=== PATIENT | female | born 1960 | race Caucasian/White ===

== ENCOUNTER 2024-11-09 14:04 | Inpatient (IN) | payer OTHER ==
--- NOTE | 2024-11-09 14:19 | ED ---
General Adult HPI - General Stated complaint: LATANYA Time Seen by Provider: 11/09/24 14:10 Source: patient, RN notes reviewed, old records reviewed - History of Present Illness Initial comments: Patient comes to us from [facility]. This is a 64-year-old female who presents to the emergency department with a past medical history significant for smoking and diabetes and crack cocaine. Patient states she last used crack cocaine 5 days ago. Patient also has a history of asthma. Patient states about 3 hours prior to arrival she came to the emergency department because she started having pain in her left arm and got quite painful and she also started having shortness of breath at that time. Patient denies any chest pain or palpitations. Patient denies any fever chills. Patient states she has a cough but it has been dry patient denies abdominal pain patient has nausea vomiting diarrhea. Patient denies any diaphoretic episode. Patient states she has a mild headache. Patient states that her arm pain is still there but is much improved. Patient still feels mildly short of breath. - Related Data Allergies Allergy/AdvReac Type Severity Reaction Status Date / Time codeine Allergy Rash/Hives Verified 11/09/24 14:18 morphine Allergy Rash/Hives Verified 11/09/24 14:18 metformin AdvReac Nausea & Verified 11/09/24 14:18 Vomiting & Diarrhea Review of Systems ROS Statement: Those systems with pertinent positive or pertinent negative responses have been documented in the HPI. ROS Other: All systems not noted in ROS Statement are negative. General Exam - General Exam Comments Initial Comments: GENERAL: Patient is well-developed and well-nourished. Patient is nontoxic and well- hydrated and is in mild distress. ENT: Neck is soft and supple. No significant lymphadenopathy is noted. Oropharynx is clear. Moist mucous membranes. Neck has full range of motion without eliciting any pain. EYES: The sclera were anicteric and conjunctiva were pink and moist. Extraocular movements were intact and pupils were equal round and reactive to light. Eyelids were unremarkable. PULMONARY: Unlabored respirations. Good breath sounds bilaterally. No audible rales rhonchi or wheezing was noted. CARDIOVASCULAR: There is a regular rate and rhythm without any murmurs gallops or rubs. ABDOMEN: Soft and nontender with normal bowel sounds. No palpable organomegaly was noted. There is no palpable pulsatile mass. SKIN: Skin is clear with no lesions or rashes and otherwise unremarkable. NEUROLOGIC: Patient is alert and oriented x3. Cranial nerves II through XII are grossly intact. Motor and sensory are also intact. Normal speech, volume and content. Symmetrical smile. MUSCULOSKELETAL: Normal extremities with adequate strength and full range of motion. No lower extremity swelling or edema. No calf tenderness. Patient's arm pain was not reproducible with movement LYMPHATICS: No significant lymphadenopathy is noted PSYCHIATRIC: Normal psychiatric evaluation. Course Vital Signs 11/09/24 11/09/24 14:13 15:13 Temperature 98.1 F Pulse Rate 77 Pulse Rate [ 71 Dsp Engineer ] Respiratory 18 Rate Blood Pressure 136/60 O2 Sat by Pulse 98 Oximetry Medical Decision Making - Medical Decision Making EKG is interpreted by myself but EKG shows a sinus rhythm at 72 bpm ID was 153 QRS is 86 QT interval 377 QTc is 402. Patient's EKG shows no ST segment elevation or depression. Was pt. sent in by a medical professional or institution (, PA, [employer], urgent care, hospital, or [place] health [place] facility...) When possible be specific @ -No Did you speak to anyone other than the patient for history (EMS, parent, family, police, friend...)? What history was obtained from this source @ -No Did you review nursing and triage notes (agree or disagree)? Why? @ -I reviewed and agree with nursing and triage notes Were old charts reviewed (outside hosp., previous admission, EMS record, old EKG, old radiological studies, urgent care reports/EKG's, [place] health [place] facility records)? Report findings @ -No old charts were reviewed Differential Diagnosis? @ -Differential Chest Pain: Stable Angina, Unstable Angina, STEMI, NSTEMI Aortic Dissection, Pneumothorax, Musculoskeletal, Esophageal Spasm GERD, Cholecystitis, Pancreatitis, Zoster, this is not meant to be an all-inclusive list. EKG interpreted by me (3pts min.). @ -As above X-rays interpreted by me (1pt min.). @ -Chest x-ray showed no acute abnormality. CT interpreted by me (1pt min.). @ -None done U/S interpreted by me (1pt. min.). @ -None done What testing was considered but not performed or refused? (CT, X-rays, U/S, labs)? Why? @ -None What meds were considered but not given or refused? Why? @ -None Did you discuss the management of the patient with other professionals (professionals i.e. , PA, [employer], lab, RT, psych nurse, social media community manager, engine manager, teacher, canine enforcement officer, manager case)? Give summary @ -I spoke with [facility] agreed admit the patient admit the patient wrote admitting orders Was smoking cessation discussed for >3mins.? @ -No Was critical care preformed (if so, how long)? @ -No Were there social determinants of health that impacted care today? How? (Brittany elessness, low income, unemployed, alcoholism, drug addiction, transportation, low edu. Level, literacy, decrease access to med. care, shelter, rehab)? @ -No Was there de-escalation of care discussed even if they declined (Discuss DNR or withdrawal of care, Hospice)? DNR status @ -No What co-morbidities impacted this encounter? (DM, HTN, Smoking, COPD, CAD, Cancer, CVA, ARF, Chemo, Hep., AIDS, mental health diagnosis, sleep apnea, morbid obesity)? @ -None Was patient admitted / discharged? Hospital course, mention meds given and route, prescriptions, significant lab abnormalities, going to OR and other pertinent info. @ -Patient was given aspirin Nitropaste in the emergency department. I went back into reevaluate the patient patient stated that the Nitropaste seem to take the way the arm pain. So at this point in time I spoke with [facility] they agreed admit the patient admit the patient I consulted cardiology Undiagnosed new problem with uncertain prognosis? @ -No Drug Therapy requiring intensive monitoring for toxicity (Heparin, Nitro, Insulin, Cardizem)? @ -No Were any procedures done? @ -No Diagnosis/symptom? @ -Atypical chest pain Acute, or Chronic, or Acute on Chronic? @ -Acute Uncomplicated (without systemic symptoms) or Complicated (systemic symptoms)? @ -Complicated Side effects of treatment? @ -No Exacerbation, Progression, or Severe Exacerbation? @ -No Poses a threat to life or bodily function? How? (Chest pain, USA, MD, pneumonia, PE, COPD, DKA, ARF, appy, cholecystitis, CVA, Diverticulitis, Homicidal, Suicidal, threat to staff... and all critical care pts) @ -Yes this can lead to an MD and endorgan dysfunction - Lab Data Result diagrams: 11/09/24 14:50 11/09/24 14:50 Lab Results 11/09/24 11/09/24 11/09/24 Range/Units 14:50 14:50 14:50 WBC 8.3 (3.8-10.6) k/uL RBC 4.25 (3.80-5.40) m/uL Hgb 12.5 (11.4-16.0) gm/dL Hct 38.9 (34.0-46.0) % MCV 91.4 (80.0-100.0) fL MCH 29.5 (25.0-35.0) pg MCHC 32.3 (31.0-37.0) g/dL RDW 14.0 (11.5-15.5) % Plt Count 201 (150-450) k/uL MPV 7.9 Neutrophils % 69 % Lymphocytes % 24 % Monocytes % 5 % Eosinophils % 1 % Basophils % 0 % Neutrophils # 5.7 (1.3-7.7) k/uL Lymphocytes # 2.0 (1.0-4.8) k/uL Monocytes # 0.4 (0-1.0) k/uL Eosinophils # 0.1 (0-0.7) k/uL Basophils # 0.0 (0-0.2) k/uL PT 10.3 (10.0-12.5) sec INR 0.9 (<1.2) APTT 24.2 (22.0-30.0) sec Sodium 138 (137-145) mmol/L Potassium 4.5 (3.5-5.1) mmol/L Chloride 102 (98-107) mmol/L Carbon Dioxide 30 (22-30) mmol/L Anion Gap 6 mmol/L BUN 24 H (7-17) mg/dL Creatinine 1.02 (0.52-1.04) mg/dL Est GFR (CKD-EPI)AfAm 69 (>60 ml/min/1.73 sqM) Est GFR (CKD-EPI)NonAf 59 (>60 ml/min/1.73 sqM) Glucose 243 H (74-99) mg/dL Calcium 9.0 (8.4-10.2) mg/dL Magnesium 1.9 (1.6-2.3) mg/dL Total Bilirubin 0.3 (0.2-1.3) mg/dL AST 13 L (14-36) U/L ALT 11 (4-34) U/L Alkaline Phosphatase 94 (38-126) U/L Troponin I (0.000-0.034) ng/mL Total Protein 6.1 L (6.3-8.2) g/dL Albumin 3.4 L (3.5-5.0) g/dL Influenza Type A (PCR) (Not Detectd) Influenza Type B (PCR) (Not Detectd) RSV (PCR) (Not Detectd) SARS-CoV-2 (PCR) (Not Detectd) 11/09/24 11/09/24 Range/Units 14:50 14:50 WBC (3.8-10.6) k/uL RBC (3.80-5.40) m/uL Hgb (11.4-16.0) gm/dL Hct (34.0-46.0) % MCV (80.0-100.0) fL MCH (25.0-35.0) pg MCHC (31.0-37.0) g/dL RDW (11.5-15.5) % Plt Count (150-450) k/uL MPV Neutrophils % % Lymphocytes % % Monocytes % % Eosinophils % % Basophils % % Neutrophils # (1.3-7.7) k/uL Lymphocytes # (1.0-4.8) k/uL Monocytes # (0-1.0) k/uL Eosinophils # (0-0.7) k/uL Basophils # (0-0.2) k/uL PT (10.0-12.5) sec INR (<1.2) APTT (22.0-30.0) sec Sodium (137-145) mmol/L Potassium (3.5-5.1) mmol/L Chloride (98-107) mmol/L Carbon Dioxide (22-30) mmol/L Anion Gap mmol/L BUN (7-17) mg/dL Creatinine (0.52-1.04) mg/dL Est GFR (CKD-EPI)AfAm (>60 ml/min/1.73 sqM) Est GFR (CKD-EPI)NonAf (>60 ml/min/1.73 sqM) Glucose (74-99) mg/dL Calcium (8.4-10.2) mg/dL Magnesium (1.6-2.3) mg/dL Total Bilirubin (0.2-1.3) mg/dL AST (14-36) U/L ALT (4-34) U/L Alkaline Phosphatase (38-126) U/L Troponin I <0.012 (0.000-0.034) ng/mL Total Protein (6.3-8.2) g/dL Albumin (3.5-5.0) g/dL Influenza Type A (PCR) Not Detected (Not Detectd) Influenza Type B (PCR) Not Detected (Not Detectd) RSV (PCR) Not Detected (Not Detectd) SARS-CoV-2 (PCR) Not Detected (Not Detectd) Disposition Clinical Impression: Atypical angina Disposition: ADMITTED IP TO THIS [facility] Referrals: None,Stated [Primary Care Provider] - 1-2 days Time of Disposition: 17:24
[2024-11-09] MEDS: SODIUM CHLORIDE 0.9% 500 ML 500 ML IV STA (14:54)
[2024-11-09] MEDS: NITROGLYCERIN OINT 1 INCH/GM PACKET TOPICAL STA (14:54)
[2024-11-09] MEDS: ASPIRIN 81 MG PO STA (14:54)
[2024-11-09 15:06] LABS: Basophils % (A) 0 %; Eosinophils # (A) 0.1 k/uL (0-0.7); Eosinophils % (A) 1 %; HCT 38.9 % (34.0-46.0); HGB 12.5 gm/dL (11.4-16.0); Lymphocytes % (A) 24 %; MCH 29.5 pg (25.0-35.0); MCHC 32.3 g/dL (31.0-37.0); MCV 91.4 fL (80.0-100.0); Mean Platelet Volume 7.9; Monocytes # (A) 0.4 k/uL (0-1.0); Monocytes % (A) 5 %; Neutrophils # (A) 5.7 k/uL (1.3-7.7); Neutrophils % (A) 69 %; Platelet Count 201 k/uL (150-450); RBC 4.25 m/uL (3.80-5.40); WBC 8.3 k/uL (3.8-10.6)
[2024-11-09 15:17] LABS: ALT 11 U/L (4-34); AST 13 U/L (14-36); African American GFR (CKD) 69 (>60 ml/min/1.73 sqM); Albumin 3.4 g/dL (3.5-5.0); Alkaline Phosphatase 94 U/L (38-126); Anion Gap 6 mmol/L; Blood Urea Nitrogen 24 mg/dL (7-17); Carbon Dioxide 30 mmol/L (22-30); Chloride 102 mmol/L (98-107); Glucose 243 mg/dL (74-99); Magnesium 1.9 mg/dL (1.6-2.3); Non-African American GFR(CKD) 59 (>60 ml/min/1.73 sqM); Potassium 4.5 mmol/L (3.5-5.1); Sodium 138 mmol/L (137-145); Total Bilirubin 0.3 mg/dL (0.2-1.3); Total Protein 6.1 g/dL (6.3-8.2)
[2024-11-09 15:23] LABS: INR 0.9 (<1.2); Partial Thromboplastin Time 24.2 sec (22.0-30.0); Prothrombin Time 10.3 sec (10.0-12.5)
--- NOTE | 2024-11-09 15:25 | XR ---
EXAMINATION TYPE: XR chest 2V DATE OF EXAM: 11/09/2024 3:12 PM COMPARISON: None. CLINICAL INDICATION: Female, 64 years old with history of Chest Pain, TECHNIQUE: XR chest 2V view(s) obtained. FINDINGS: The heart size is normal. The pulmonary vasculature is normal. The lungs are clear. IMPRESSION: 1. No acute pulmonary process. [facility], Workstation: [facility], 11/09/2024 3:23 PM
[2024-11-09 15:41] LABS: Influenza A Not Detected (Not Detectd); Influenza B Not Detected (Not Detectd); RSV Not Detected (Not Detectd)
[2024-11-09] MEDS ORDERED: NITROGLYCERIN SL TABS 0.4 MG TAB SUBLINGUAL PRN (17:24)
[2024-11-09] MEDS: NITROGLYCERIN OINT 1 INCH/GM PACKET TOPICAL SCH (17:41)
[2024-11-10] MEDS: MELATONIN 5 MG TABLET PO SCH (01:23)
--- NOTE | 2024-11-10 09:38 | P.CRDCN ---
History of Present Illness Consult date: 11/10/24 History of present illness: HISTORY OF PRESENTING ILLNESS: Patient is a 64-year-old female with past medical history of type 2 diabetes and morbid obesity. She presented to the Hospital because of symptoms of increased worsening shortness of breath and left-sided shoulder pain. She denies any fever chills however does report mild cough. Patient's left shoulder has a limited range of motion at the shoulder joint. Bringing her arm above her shoulder induces the pain that brought her to the hospital. He smokes 1 pack/day for last 45 years. She denies any alcohol use or marijuana use. She denies any drug use. She denies any prior history of stroke or TIA. She has not had any prior cardiac testing done in recent past. Admission Cardiac Labs: Troponin x 3 were negative, hypoglycemic with glucose 248, oral panel was negative, Hb 12.5 Admission testing: EKG shows normal sinus rhythm with no significant ST-T changes concerning for ischemia. Low voltage complexes due to body habitus CXR shows no significant pulmonary congestion or consolidation REVIEW OF SYSTEMS: 14 point review of system is negative except what is mentioned above in HPI. PHYSICAL EXAMINATION: Neck: Brisk carotid upstroke, no jugular venous distention. Lungs: Mild wheezing or rhonchi audible Heart: Regular rate and rhythm, S1-S2, , no murmur or rub. Abdomen: Soft nontender, positive bowel sounds. Extremities: No edema, intact distal pulses. Neuro: Alert, oritented, no focal deficits. Detailed neuro exam was not performed. ASSESSMENT: # Left shoulder pain and arm pain, most likely musculoskeletal. Ruled out of ACS with negative ECG and tropes. Pain reproducible with bringing arm above the shoulder # Shortness of breath, likely mild COPD exacerbation # Type II diabetes # Morbid obesity # Tobacco smoker 1 pack/day [id number] smoking history PLAN: Obtain echocardiogram. Aspirin 81 mg, Lipitor 40 mg, losartan 12.5 mg daily Diabetes and COPD management as per primary team Recommend Lexiscan nuclear stress test if patient ends up staying in the hospital until Tuesday. If patient is cleared by the rounding team to be discharged, Lexiscan can be performed in the office as an outpatient. Smoking cessation counseling provided. Quit line details provided Rahul Ramesh MD, FACC, RPVI Thank you for allowing [facility] to participate in this patient's care. Feel free to reach out in case of any followup questions. Past Medical History Past Medical History: Asthma, COPD, Diabetes Mellitus History of Any Multi-Drug Resistant Organisms: None Reported Past Surgical History: Orthopedic Surgery Additional Past Surgical History / Comment(s): left arm Past Psychological History: Bipolar Smoking Status: Current every day smoker Past Alcohol Use History: None Reported Past Drug Use History: Cocaine Medications and Allergies Home Medications Medication Instructions Recorded Confirmed Type Albuterol Sulfate [Ventolin HFA] 2 puff INHALATION TID PRN 11/09/24 11/09/24 History Insulin Regular, Human [NovoLIN R] See Protocol SQ AC-TID 11/09/24 11/09/24 History Tiotropium 2.5 Mcg/Puff [Spiriva 2 puff INHALATION RT-DAILY 11/09/24 11/09/24 History Respimat 2.5 Mcg] glipiZIDE [Glucotrol] 5 mg PO DAILY 11/09/24 11/09/24 History Allergies Allergy/AdvReac Type Severity Reaction Status Date / Time codeine Allergy Rash/Hives Verified 11/09/24 17:40 morphine Allergy Rash/Hives Verified 11/09/24 17:40 metformin AdvReac Nausea & Verified 11/09/24 17:40 Vomiting & Diarrhea Physical Exam Vitals: Vital Signs Temp Pulse Pulse Resp BP BP Pulse Ox 11/10/24 07:00 97.9 F 61 16 123/61 97 11/10/24 06:00 57 L 16 123/61 97 11/10/24 00:00 67 20 115/63 95 11/09/24 19:00 98.0 F 78 30 H 142/68 97 11/09/24 15:13 71 11/09/24 14:13 98.1 F 77 18 136/60 98 Results 11/09/24 14:50 11/09/24 14:50 Cardiac Enzymes 11/09/24 11/09/24 11/09/24 Range/Units 14:50 14:50 18:01 AST 13 L (14-36) U/L Troponin I <0.012 <0.012 (0.000-0.034) ng/mL 11/09/24 Range/Units 21:35 AST (14-36) U/L Troponin I <0.012 (0.000-0.034) ng/mL Coagulation 11/09/24 Range/Units 14:50 PT 10.3 (10.0-12.5) sec APTT 24.2 (22.0-30.0) sec CBC 11/09/24 Range/Units 14:50 WBC 8.3 (3.8-10.6) k/uL RBC 4.25 (3.80-5.40) m/uL Hgb 12.5 (11.4-16.0) gm/dL Hct 38.9 (34.0-46.0) % Plt Count 201 (150-450) k/uL Comprehensive Metabolic Panel 11/09/24 Range/Units 14:50 Sodium 138 (137-145) mmol/L Potassium 4.5 (3.5-5.1) mmol/L Chloride 102 (98-107) mmol/L Carbon Dioxide 30 (22-30) mmol/L BUN 24 H (7-17) mg/dL Creatinine 1.02 (0.52-1.04) mg/dL Glucose 243 H (74-99) mg/dL Calcium 9.0 (8.4-10.2) mg/dL AST 13 L (14-36) U/L ALT 11 (4-34) U/L Alkaline Phosphatase 94 (38-126) U/L Total Protein 6.1 L (6.3-8.2) g/dL Albumin 3.4 L (3.5-5.0) g/dL Current Medications Generic Name Dose Route Start Last Admin Trade Name Freq PRN Reason Stop Dose Admin Albuterol/Ipratropium 3 ml 11/10/24 20:00 Ipratropium-Albuterol 3 Ml Neb INHALATION RT-BID [facility] Aspirin 81 mg 11/11/24 09:00 Aspirin 81 Mg PO DAILY [facility] Atorvastatin Calcium 40 mg 11/10/24 21:00 Atorvastatin 40 Mg Tab PO HS [facility] Losartan Potassium 12.5 mg 11/10/24 09:45 Losartan 25 Mg Tab PO DAILY [facility] Melatonin 5 mg 11/10/24 00:31 11/10/24 01:23 Melatonin 5 Mg Tablet PO 5 mg HS [facility] Administration Nitroglycerin 1 inch 11/09/24 18:00 11/10/24 06:55 Nitroglycerin Oint 1 Inch/Gm Packet TOPICAL 1 inch Q6HR TULIO Administration 11/09/24 14:50 11/09/24 14:50
[2024-11-10 10:25] LABS: Chol/HDL Ratio 4.65 Ratio; LDL Cholesterol,Calculated 86.4 mg/dL (0.0-131.0)
[2024-11-10 10:47] LABS: Magnesium 1.8 mg/dL (1.6-2.3)
[2024-11-10 10:58] LABS: NT-Pro-B-Type Natriuretic Pept <20 pg/mL
[2024-11-10] MEDS: LOSARTAN 25 MG TAB PO SCH (11:07)
[2024-11-10] MEDS: ASPIRIN 325 MG TAB PO SCH (11:13)
[2024-11-10 12:32] LABS: Glucose,Whole Blood 217 mg/dL (70-110)
[2024-11-10 17:02] LABS: Glucose,Whole Blood 199 mg/dL (70-110)
[2024-11-10] MEDS ORDERED: DEXTROSE 50% SYRINGE 50 ML IVP PRN ×2 (17:27)
[2024-11-10] MEDS ORDERED: ALBUTEROL NEBULIZED 2.5 MG/3 ML INHALATION PRN (17:28)
[2024-11-10] MEDS: INSULIN ASPART (NovoLOG) 100 UNIT/ML VIAL SQ SCH (18:30)
[2024-11-10] MEDS: TIOTROPIUM 2.5 MCG INHALER INHALATION SCH (19:15)
[2024-11-10] MEDS: IPRATROPIUM-ALBUTEROL 3 ML NEB INHALATION SCH (19:38)
[2024-11-10 20:09] LABS: Glucose,Whole Blood 300 mg/dL (70-110)
--- NOTE | 2024-11-10 20:48 | P.HPIM ---
History of Present Illness H&P Date: 11/10/24 Chief Complaint: Chest pain 64-year-old female who presents to the emergency department with a past medical history significant for smoking and diabetes and crack cocaine. Patient states she last used crack cocaine 5 days ago. Patient also has a history of asthma. Patient states about 3 hours prior to arrival she came to the emergency department because she started having pain in her left arm and got quite painful and she also started having shortness of breath at that time. Patient denies any chest pain or palpitations. Patient denies any fever chills. Patient s tates she has a cough but it has been dry patient denies abdominal pain patient has nausea vomiting diarrhea. Patient denies any diaphoretic episode. Patient states she has a mild headache. Patient states that her arm pain is still there but is much improved. Patient still feels mildly short of breath. Blood work completed in ED reveals a WBC of 8.3, hemoglobin of 12.5 and platelet count of 201, sodium 138, potassium 4.5, BUNs/creatinine of 20/1.02 and blood glucose of 243 Review of Systems REVIEW OF SYSTEMS: CONSTITUTIONAL: No fever, no malaise, no fatigue. HEENT: No recent visual problems or hearing problems. Denied any sore throat. CARDIOVASCULAR: No chest pain, orthopnea, PND, no palpitations, no syncope. PULMONARY: No shortness of breath, no cough, no hemoptysis. GASTROINTESTINAL: No diarrhea, no nausea, no vomiting, no abdominal pain. NEUROLOGICAL: No headaches, no weakness, no numbness. HEMATOLOGICAL: Denies any bleeding or petechiae. GENITOURINARY: Denies any burning micturition, frequency, or urgency. MUSCULOSKELETAL/RHEUMATOLOGICAL: Denies any joint pain, swelling, or any muscle pain. ENDOCRINE: Denies any polyuria or polydipsia. The rest of the 14-point review of systems is negative. Past Medical History Past Medical History: Asthma, COPD, Diabetes Mellitus History of Any Multi-Drug Resistant Organisms: None Reported Past Surgical History: Cholecystectomy, Orthopedic Surgery Additional Past Surgical History / Comment(s): left arm, tubal Past Anesthesia/Blood Transfusion Reactions: No Reported Reaction Past Psychological History: Anxiety, Bipolar, Depression Smoking Status: Current every day smoker Past Alcohol Use History: None Reported Past Drug Use History: Cocaine Medications and Allergies Home Medications Medication Instructions Recorded Confirmed Type Albuterol Sulfate [Ventolin HFA] 2 puff INHALATION TID PRN 11/09/24 11/09/24 History Insulin Regular, Human [NovoLIN R] See Protocol SQ AC-TID 11/09/24 11/09/24 H istory Tiotropium 2.5 Mcg/Puff [Spiriva 2 puff INHALATION RT-DAILY 11/09/24 11/09/24 History Respimat 2.5 Mcg] glipiZIDE [Glucotrol] 5 mg PO DAILY 11/09/24 11/09/24 History Allergies Allergy/AdvReac Type Severity Reaction Status Date / Time codeine Allergy Rash/Hives Verified 11/10/24 16:16 morphine Allergy Rash/Hives Verified 11/10/24 16:16 metformin AdvReac Nausea & Verified 11/10/24 16:16 Vomiting & Diarrhea Physical Exam Vitals: Vital Signs Temp Pulse Pulse Resp BP BP Pulse Ox 11/10/24 07:00 97.9 F 61 16 123/61 97 11/10/24 06:00 57 L 16 123/61 97 11/10/24 00:00 67 20 115/63 95 11/09/24 19:00 98.0 F 78 30 H 142/68 97 11/09/24 15:13 71 11/09/24 14:13 98.1 F 77 18 136/60 98 Intake and Output 11/09/24 11/10/24 11/10/24 22:59 06:59 14:59 Other: Weight 124.284 kg - Constitutional General appearance: Present: average body habitus, cooperative, no acute distress - EENT Eyes: Present: anicteric sclerae, EOMI, PERRLA, normal appearance ENT: Present: hearing grossly normal, normal oropharynx Ears: bilateral: normal - Neck Neck: Present: normal ROM. Absent: lymphadenopathy, rigidity, thyromegaly Carotids: negative: bruit present Thyroid: bilateral: normal size, negative: enlarged, nodule - Respiratory Respiratory: bilateral: CTA, negative: rales, rhonchi, wheezing - Cardiovascular Rhythm: regular Heart sounds: normal: S1, S2 Abnormal Heart Sounds: Absent: systolic murmur, diastolic murmur - Gastrointestinal General gastrointestinal: Present: normal bowel sounds, soft. Absent: distended, organomegaly, tenderness - Genitourinary Genitourinary Comment(s): deferred - Integumentary Integumentary: Present: normal turgor. Absent: jaundiced, rash, ulcer - Neurologic Neurologic: Present: CNII-XII intact. Absent: focal deficits - Musculoskeletal Musculoskeletal: Present: gait normal, strength equal bilaterally - Psychiatric Psychiatric: Present: A&O x's 3, appropriate affect, intact judgment & insight Results CBC & Chem 7: 11/09/24 14:50 11/09/24 14:50 Labs: Abnormal Lab Results - Last 24 Hours (Table) 11/09/24 11/09/24 11/10/24 Range/Units 14:50 14:50 12:30 BUN 24 H (7-17) mg/dL Glucose 243 H (74-99) mg/dL POC Glucose (mg/dL) 217 H (70-110) mg/dL AST 13 L (14-36) U/L Total Protein 6.1 L (6.3-8.2) g/dL Albumin 3.4 L (3.5-5.0) g/dL Triglycerides 243.00 H (0.00-149.00) mg/dL VLDL Cholesterol, Calc 48.60 H (5.00-40.00) mg/dL HDL Cholesterol 37.00 L (40.00-60.00) mg/dL Thrombosis Risk Factor Assmnt - Choose All That Apply Each Factor Represents 1 point: Obesity (BMI >25) Each Risk Factor Represents 2 Points: Age 61-74 years Thrombosis Risk Factor Assessment Total Risk Factor Score: 3 Thrombosis Risk Factor Assessment Level: Moderate Risk Assessment and Plan Assessment: 1. Chest pain rule out acute coronary syndrome -Patient will be admitted to telemetry; monitor EKG and trend troponin -Recommend 2D echo -Consult cardiology 2. Substance abuse; patient reports using crack cocaine 5 days ago; no signs of withdrawal; counseling done 3. Hyperglycemia/diabetes; patient takes glipizide 5 mg daily along with insulin sliding scale; will hold off on glipizide; monitor Accu-Cheks q. ACH S with insulin sliding scale 4. Asthma; not in exacerbation; continue with home inhaler therapy DVT prophylaxis; SCDs CODE STATUS; full code
[2024-11-10] MEDS: ATORVASTATIN 40 MG TAB PO SCH (21:16)
[2024-11-11 05:49] LABS: Glucose,Whole Blood 195 mg/dL (70-110)
[2024-11-11] MEDS: ASPIRIN 81 MG PO SCH (09:06)
[2024-11-11 09:59] LABS: Chol/HDL Ratio 3.92 Ratio
[2024-11-11 10:24] LABS: LDL Cholesterol,Calculated 98.8 mg/dL (0.0-131.0)
--- NOTE | 2024-11-11 11:00 | P.PN ---
Subjective Progress Note Date: 11/11/24 HISTORY OF PRESENTING ILLNESS: Patient is a 64-year-old female with past medical history of type 2 diabetes and morbid obesity. She presented to the Hospital because of symptoms of increased worsening shortness of breath and left-sided shoulder pain. She denies any fever chills however does report mild cough. Patient's left shoulder has a limited range of motion at the shoulder joint. Bringing her arm above her shoulder induces the pain that brought her to the hospital. He smokes 1 pack/day for last 45 years. She denies any alcohol use or marijuana use. She denies any drug use. She denies any prior history of stroke or TIA. She has not had any prior cardiac testing done in recent past. Admission Cardiac Labs: Troponin x 3 were negative, hypoglycemic with glucose 248, oral panel was negative, Hb 12.5 Admission testing: EKG shows normal sinus rhythm with no significant ST-T changes concerning for ischemia. Low voltage complexes due to body habitus CXR shows no significant pulmonary congestion or consolidation Progress note 11/11/2024 Patient is seen and examined at bedside this a.m. Patient denies having any active chest pain chest pressure. She mostly complains of right shoulder pain yesterday which also seems to be have got better. PHYSICAL EXAMINATION: Neck: Brisk carotid upstroke, no jugular venous distention. Lungs: Mild wheezing or rhonchi audible Heart: Regular rate and rhythm, S1-S2, , no murmur or rub. Abdomen: Soft nontender, positive bowel sounds. Extremities: No edema, intact distal pulses. Neuro: Alert, oritented, no focal deficits. Detailed neuro exam was not performed. ASSESSMENT: # Left shoulder pain and arm pain, most likely musculoskeletal. Ruled out of ACS with negative ECG and tropes. Pain reproducible with bringing arm above the shoulder # Shortness of breath, likely mild COPD exacerbation # Type II diabetes # Morbid obesity # Tobacco smoker 1 pack/day [id number] smoking history PLAN: At this time I feel patient's left-sided shoulder pain is less likely cardiogenic in etiology. Aspirin 81 mg, Lipitor 40 mg, losartan 12.5 mg daily Diabetes and COPD management as per primary team Due to patient's risk factor: Obtain echocardiogram. Recommend Lexiscan nuclear stress test, if patient ends up staying in the hospital until Tuesday. If patient is cleared by the rounding team to be discharged, Lexiscan can be performed in the office as an outpatient. Smoking cessation counseling provided. Quit line details provided Objective - Vital Signs Vital signs: Vital Signs Temp 98.1 F 11/11/24 07:00 Pulse 61 11/11/24 07:00 Resp 18 11/11/24 08:00 BP 107/65 11/11/24 07:00 Pulse Ox 96 11/11/24 07:00 FiO2 Intake & Output 11/10/24 11/11/24 11/11/24 18:59 06:59 18:59 Weight 124.284 kg Other: Voiding Method Toilet Toilet # Voids 2 - Labs CBC & Chem 7: 11/09/24 14:50 11/09/24 14:50 Labs: Abnormal Lab Results - Last 24 Hours (Table) 11/10/24 11/10/24 11/10/24 Range/Units 09:58 12:30 17:00 POC Glucose (mg/dL) 217 H 199 H (70-110) mg/dL Hemoglobin A1c 7.7 H (<=6.0) % 11/10/24 11/11/24 Range/Units 20:08 05:47 POC Glucose (mg/dL) 300 H 195 H (70-110) mg/dL Hemoglobin A1c (<=6.0) %
[2024-11-11 13:19] LABS: Glucose,Whole Blood 168 mg/dL (70-110)
[2024-11-11 17:15] LABS: Glucose,Whole Blood 141 mg/dL (70-110)
--- NOTE | 2024-11-11 17:22 | P.PN ---
Subjective Progress Note Date: 11/11/24 64-year-old female who presents to the emergency department with a past medical history significant for smoking and diabetes and crack cocaine. Patient states she last used crack cocaine 5 days ago. Patient also has a history of asthma. Patient states about 3 hours prior to arrival she came to the emergency department because she started having pain in her left arm and got quite painful and she also started having shortness of breath at that time. Patient denies any chest pain or palpitations. Patient denies any fever chills. Patient states she has a cough but it has been dry patient denies abdominal pain patient has nausea vomiting diarrhea. Patient denies any diaphoretic episode. Patient states she has a mild headache. Patient states that her arm pain is still there but is much improved. Patient still feels mildly short of breath. Blood work completed in ED reveals a WBC of 8.3, hemoglobin of 12.5 and platelet count of 201, sodium 138, potassium 4.5, BUNs/creatinine of 20/1.02 and blood glucose of 243 --Patient reports worsening shortness of breath and wheezing; coughing with yellowish phlegm; reports some chills last night -- Acute exacerbation asthma/COPD; we will add IV Solu-Medrol; doxycycline; nebulizer treatment -Has been evaluated for cardiology; scheduled for stress test tomorrow Objective - Vital Signs Vital signs: Vital Signs Temp 98.1 F 11/11/24 07:00 Pulse 61 11/11/24 07:00 Resp 18 11/11/24 08:00 BP 107/65 11/11/24 07:00 Pulse Ox 96 11/11/24 07:00 FiO2 Intake & Output 11/10/24 11/11/24 11/11/24 18:59 06:59 18:59 Weight 124.284 kg Other: Voiding Method Toilet Toilet # Voids 2 - Exam Neck: Brisk carotid upstroke, no jugular venous distention. Lungs: Mild wheezing or rhonchi audible Heart: Regular rate and rhythm, S1-S2, , no murmur or rub. Abdomen: Soft nontender, positive bowel sounds. Extremities: No edema, intact distal pulses. Neuro: Alert, oritented, no focal deficits. Detailed neuro exam was not performed. - Labs CBC & Chem 7: 11/09/24 14:50 11/09/24 14:50 Labs: Abnormal Lab Results - Last 24 Hours (Table) 11/10/24 11/10/24 11/10/24 Range/Units 09:58 12:30 17:00 POC Glucose (mg/dL) 217 H 199 H (70-110) mg/dL Hemoglobin A1c 7.7 H (<=6.0) % 11/10/24 11/11/24 Range/Units 20:08 05:47 POC Glucose (mg/dL) 300 H 195 H (70-110) mg/dL Hemoglobin A1c (<=6.0) % Assessment and Plan Assessment: 1. Chest pain rule out acute coronary syndrome -Patient will be admitted to telemetry; monitor EKG and trend troponin -Recommend 2D echo -Consult cardiology 2. Substance abuse; patient reports using crack cocaine 5 days ago; no signs of withdrawal; counseling done 3. Hyperglycemia/diabetes; patient takes glipizide 5 mg daily along with insulin sliding scale; will hold off on glipizide; monitor Accu-Cheks q. ACH S with insulin sliding scale 4. Asthma; not in exacerbation; continue with home inhaler therapy DVT prophylaxis; SCDs CODE STATUS; full code
[2024-11-11] MEDS: DOXYCYCLINE 100 MG in SODIUM CHLORIDE 0.9% 100 ML IVPB SCH (20:25)
[2024-11-11] MEDS: methylPREDNISolone SOD SUCCI 40 MG/ML 1 ML VIAL IV SCH (20:25)
[2024-11-11 20:55] LABS: Glucose,Whole Blood 277 mg/dL (70-110)
[2024-11-12 06:21] LABS: Glucose,Whole Blood 297 mg/dL (70-110)
[2024-11-12] MEDS ORDERED: REGADENOSON 0.4 MG/5 ML SYRINGE IV PRN (07:31)
[2024-11-12] MEDS ORDERED: AMINOPHYLLINE 500 MG/20 ML VIAL IV PRN (07:31)
[2024-11-12] MEDS ORDERED: CAFFEINE CITRATE 60 MG/3 ML VIAL IV PRN (07:31)
[2024-11-12] MEDS ORDERED: AMINOPHYLLINE 500 MG/20 ML VIAL IV ONE (11:15)
--- NOTE | 2024-11-12 12:09 | P.PN ---
Subjective Progress Note Date: 11/12/24 HISTORY OF PRESENTING ILLNESS: Patient is a 64-year-old female with past medical history of type 2 diabetes and morbid obesity. She presented to the Hospital because of symptoms of increased worsening shortness of breath and left-sided shoulder pain. She denies any fever chills however does report mild cough. Patient's left shoulder has a limited range of motion at the shoulder joint. Bringing her arm above her shoulder induces the pain that brought her to the hospital. He smokes 1 pack/day for last 45 years. She denies any alcohol use or marijuana use. She denies any drug use. She denies any prior history of stroke or TIA. She has not had any prior cardiac testing done in recent past. Admission Cardiac Labs: Troponin x 3 were negative, hypoglycemic with glucose 248, oral panel was negative, Hb 12.5 Admission testing: EKG shows normal sinus rhythm with no significant ST-T changes concerning for ischemia. Low voltage complexes due to body habitus CXR shows no significant pulmonary congestion or consolidation 11/11/2024 Patient is seen and examined at bedside this a.m. Patient denies having any active chest pain chest pressure. She mostly complains of right shoulder pain yesterday which also seems to be have got better. 11/12/2024 Patient seen and examined in the stress lab. Patient is scheduled today for Lexiscan stress test. No complaints of chest pain or chest pressure. Blood pressure 117/78, heart rate 57, pulse ox 94% on room air. PHYSICAL EXAMINATION: Neck: Brisk carotid upstroke, no jugular venous distention. Lungs: Mild wheezing or rhonchi audible Heart: Regular rate and rhythm, S1-S2, , no murmur or rub. Abdomen: Soft nontender, positive bowel sounds. Extremities: No edema, intact distal pulses. Neuro: Alert, oritented, no focal deficits. Detailed neuro exam was not performed. ASSESSMENT: # Left shoulder pain and arm pain, most likely musculoskeletal. Ruled out of ACS with negative ECG and tropes. Pain reproducible with bringing arm above the shoulder # Shortness of breath, likely mild COPD exacerbation # Type II diabetes # Morbid obesity # Tobacco smoker 1 pack/day [id number] smoking history PLAN: At this time I feel patient's left-sided shoulder pain is less likely cardiogenic in etiology. Continue patient on aspirin 81 mg, Lipitor 40 mg, losartan 12.5 mg daily Diabetes and COPD management as per primary team Due to patient's risk factor: Obtain echocardiogram. If Lexiscan stress test is unremarkable, patient is cleared for discharge and may follow-up in the office in 1 to 2 weeks. Smoking cessation counseling provided. Quit line details provided Nurse practitioner note has been reviewed, I agree with documented findings and plan of care. Patient was seen and examined. Objective - Vital Signs Vital signs: Vital Signs Temp 98.8 F 11/12/24 07:00 Pulse 57 L 11/12/24 07:00 Resp 16 11/12/24 07:00 BP 117/78 11/12/24 07:00 Pulse Ox 94 L 11/12/24 07:00 FiO2 Intake & Output 11/11/24 11/12/24 11/12/24 18:59 06:59 18:59 Other: Voiding Method Toilet Toilet # Voids 3 2 - Labs CBC & Chem 7: 11/09/24 14:50 11/09/24 14:50 Labs: Abnormal Lab Results - Last 24 Hours (Table) 11/11/24 11/11/24 11/11/24 Range/Units 13:18 17:13 20:54 POC Glucose (mg/dL) 168 H 141 H 277 H (70-110) mg/dL 11/12/24 Range/Units 06:20 POC Glucose (mg/dL) 297 H (70-110) mg/dL
[2024-11-12 12:17] LABS: Glucose,Whole Blood 203 mg/dL (70-110)
--- NOTE | 2024-11-12 12:57 | NM ---
EXAMINATION TYPE: NM stress lexiscan cardiolite DATE OF EXAM: 11/12/2024 COMPARISON: NONE CLINICAL INDICATION: Female, 64 years old with history of chest pain; history of diabetes and hyperch olesterolemia and tobacco use TECHNIQUE: After the intravenous administration of 10.3 mCi Tc 99m Sestamibi - Cardiolite resting SP ECT images acquired 60 minutes post injection. The patient received 0.4mg Lexiscan, 28.4 mCi Tc 99m Sestamibi - Stress images obtained [address] injection FINDINGS: Review of stress and rest SPECT images demonstrates diminished radiotracer uptake involving the septa l wall extending anteriorly on stress and rest images. The polar maps suggests more prominent diminis hed radiotracer uptake and stress images versus rest images particularly near the base. Gated analysi s shows normal wall motion with an estimated left ventricular ejection fraction of 67 %. IMPRESSION: Possible old infarct. Cannot exclude malick-infarct acute ischemia. Consider direct cathet er angiogram investigation based on clinical correlation. [facility], , 11/12/2024 12:54 PM
--- NOTE | 2024-11-12 16:55 | CA ---
Lexiscan Nuclear Stress Test Report Name: Lavinia Courtney Exam Date: 11/12/2024 09:59 Exam Location: [place] Stress Ht (in): 65 Wt (lb): 274 BSA: 2.26 Ordering Phys: Magalie Martinez Referring Phys: THERESA, Technologist: DERRICK,, Age: 64 Gender: F : 1960 Procedure CPT: Indications: Reflex order-Stress test ICD-10 Codes: Patient History: Chest pain and diabetes Medications: Meds past 24 hrs: Pretest Chest Pain: STRESS TEST Lexiscan Protocol Exercise Duration (min:sec): 01:[address] Depressions (mm): Angina Score: Pollock Score: Resting HR (bpm): 62 Peak HR (bpm): 89 Resting BP (mmHg): 122 / 66 Peak BP (mmHg): / 59 MPHR: 158 Target HR: 134 % MPHR: 56 METS: 1.0 Total Dose: Peak Dose: Atropine: Double Product: BP Response: Stress Termination: INFUSION COMPLETE Stress Symptoms: NO SYMPTOMS Stress Summary: 100mg aminophylline ECG ANALYSIS Resting ECG: Stress ECG: CONCLUSIONS At baseline EKG showed normal sinus rhythm, normal axis, 0.[address] depressions in 2 and aVF. Patient recieved IV infusion of Lexiscan 0.4mg and at peak infusion EKG showed no significant change from baseline. Conclusions: 1. Normal EKG response to Lexiscan infusion 2. Nuclear imaging to be reported separately. Dr. Clint Fitzpatrick DO (Electronically Signed) Final Date: 12 November 2024 16:54
--- NOTE | 2024-11-12 17:23 | CA ---
Transthoracic Echo Report Name: Lavinia Courtney Age: 64 Gender: F : 1960 Exam Date: 11/12/2024 16:07 Exam Location: [place] Echo Ht (in): 65 Wt (lb): 274 Ordering Physician: Magalie Martinez Attending/Referring Phys: [id number], Michelle Named Account Executive Sheri Lindsay RDCS Procedure CPT: Indications: LVF Cardiac Hx: Technical Quality: Fair Contrast 1: Total Dose (mL): Contrast 2: Total Dose (mL): MEASUREMENTS (Male / Female) Normal Values 2D ECHO LV Diastolic Diameter PLAX 4.3 cm 4.2 - 5.9 / 3.9 - 5.3 cm LV Systolic Diameter PLAX 3.0 cm IVS Diastolic Thickness 1.3 cm 0.6 - 1.0 / 0.6 - 0.9 cm LVPW Diastolic Thickness 1.2 cm 0.6 - 1.0 / 0.6 - 0.9 cm LV Relative Wall Thickness 0.6 RV Internal Dim ED PLAX 3.5 cm LA Systolic Diameter LX 3.2 cm 3.0 - 4.0 / 2.7 - 3.8 cm LV Diastolic Volume MOD 4C 90.6 cm??? LV Systolic Volume MOD 4C 47.7 cm??? LV Ejection Fraction MOD 4C 47.3 % LV Cardiac Index MOD 4C 1047.3 cm???/min???m??? LV Diastolic Length 4C 8.2 cm LV Systolic Length 4C 6.8 cm LV Diastolic Volume MOD 2C 94.8 cm??? LV Systolic Volume MOD 2C 51.1 cm??? LV Ejection Fraction MOD 2C 46.1 % LV Cardiac Index MOD 2C 1066.6 cm???/min???m??? LV Diastolic Length 2C 8.2 cm LV Systolic Length 2C 6.9 cm M-MODE Aortic Root Diameter MM 3.3 cm AV Cusp Separation MM 1.9 cm DOPPLER AV Peak Velocity 146.5 cm/s AV Peak Gradient 8.6 mmHg MV Area PHT 3.1 cm??? Mitral E Point Velocity 91.2 cm/s Mitral A Point Velocity 104.7 cm/s Mitral E to A Ratio 0.9 MV Deceleration Time 241.9 ms FINDINGS Left Ventricle Left ventricular ejection fraction is estimated at 55 %. Mildly increased septal wall thickness. Mildly increased posterior wall thickness. Left ventricular cavity size normal. Right Ventricle Mild right ventricular dilatation. Unable to estimate the right ventricular systolic pressure. Right Atrium Normal right atrial size. No right atrial thrombus or mass seen. Left Atrium Normal left atrial size. No left atrial thrombus or mass present. Mitral Valve Structurally normal mitral valve. Trace mitral regurgitation. No evidence for mitral valve prolapse. No mitral stenosis. Aortic Valve Trileaflet aortic valve. No aortic valve stenosis or regurgitation. Tricuspid Valve Structurally normal tricuspid valve. No tricuspid stenosis, regurgitation or prolapse. Pulmonic Valve No pulmonic regurgitation. No pulmonic regurgitation. Pericardium No pericardial or pleural effusion. Aorta Normal size aortic root and proximal ascending aorta. CONCLUSIONS Left ventricular ejection fraction 55% Mildly increased left ventricular wall thickness Mild right ventricular dilation Trace mitral regurgitation Previewed by: Dr. Clint Fitzpatrick DO (Electronically Signed) Final Date: 12 November 2024 17:23
[2024-11-12 17:55] LABS: Glucose,Whole Blood 187 mg/dL (70-110)
[2024-11-12 20:28] LABS: Glucose,Whole Blood 258 mg/dL (70-110)
--- NOTE | 2024-11-12 21:28 | P.PN ---
Subjective 64-year-old female who presents to the emergency department with a past medical history significant for smoking and diabetes and crack cocaine. Patient states she last used crack cocaine 5 days ago. Patient also has a history of asthma. Patient states about 3 hours prior to arrival she came to the emergency department because she started having pain in her left arm and got quite painful and she also started having shortness of breath at that time. Patient denies any chest pain or palpitations. Patient denies any fever chills. Patient st ates she has a cough but it has been dry patient denies abdominal pain patient has nausea vomiting diarrhea. Patient denies any diaphoretic episode. Patient states she has a mild headache. Patient states that her arm pain is still there but is much improved. Patient still feels mildly short of breath. Blood work completed in ED reveals a WBC of 8.3, hemoglobin of 12.5 and platelet count of 201, sodium 138, potassium 4.5, BUNs/creatinine of 20/1.02 and blood glucose of 243 --Patient reports worsening shortness of breath and wheezing; coughing with yellowish phlegm; reports some chills last night -- Acute exacerbation asthma/COPD; we will add IV Solu-Medrol; doxycycline; nebulizer treatment -Has been evaluated for cardiology; scheduled for stress test tomorrow 11/12 This is a pleasant 64 years old female who presents because of left arm pain with little dyspnea. After she was using crack cocaine the last few days. Patient evaluated by loss prevention analyst and underwent stress test today showing possible old infarct and cannot exclude malick-infarct reversible ischemia and they recommend direct cardiac cath visualization. Patient informed and and she agrees. Other than that she was feeling well and expected to be discharged. She is going to be negative but now she agrees to stay and be evaluated by loss prevention analyst. Cardiology team already on the case Patient also on IV Solu-Medrol 40 mg twice daily and doxycycline for possible COPD exacerbation but looks fine and improving, she is saturating well on room airAt 99% She denies cough and phlegm. No fever or leukocytosis. WBC is 8.3. I think her COPD exacerbation is also due to cocaine rather than true infection. I do not think patient will benefit from antibiotics which may carry more risk than benefit Other than that she is doing well and may be considered for prednisone burst taper in 1 to 2 days However we will keep monitoring for now Patient was counseled to quit cocaine, she looks actually motivated to quit and she informed me she is planning to go to [place] upon discharge No other new complaints Hemodynamically stable Labs were unremarkable Review of systems CONSTITUTIONAL: No fever, no malaise, no fatigue. HEENT: No recent visual problems or hearing problems. Denied any sore throat. HEMATOLOGICAL: Denies any bleeding or petechiae. GENITOURINARY: Denies any burning micturition, frequency, or urgency. MUSCULOSKELETAL/RHEUMATOLOGICAL: Denies any joint pain, swelling, or any muscle pain. ENDOCRINE: Denies any polyuria or polydipsia. Active Medications Generic Name Dose Route Start Last Admin Trade Name Freq PRN Reason Stop Dose Admin Albuterol Sulfate 2.5 mg 11/10/24 17:28 Albuterol Nebulized 2.5 Mg/3 Ml INHALATION RT-TID PRN Shortness Of Breath Albuterol/Ipratropium 3 ml 11/10/24 20:00 11/12/24 20:18 Ipratropium-Albuterol 3 Ml Neb INHALATION Not Given RT-BID [facility] Aspirin 81 mg 11/11/24 09:00 11/12/24 12:50 Aspirin 81 Mg PO 81 mg DAILY [facility]IO Administration Atorvastatin Calcium 40 mg 11/10/24 21:00 11/11/24 20:25 Atorvastatin 40 Mg Tab PO 40 mg HS [facility]IO Administration Dextrose/Water 25 ml 11/10/24 17:27 Dextrose 50% Syringe 50 Ml IVP PER PROTOCOL PRN Hypoglycemia Protocol Dextrose/Water 50 ml 11/10/24 17:27 Dextrose 50% Syringe 50 Ml IVP PER PROTOCOL PRN Hypoglycemia Protocol Insulin Aspart 0 unit 11/10/24 17:30 11/12/24 17:40 Insulin Aspart (Novolog) 100 Unit/Ml Vial SQ Not Given ACHS [facility]IO Protocol Losartan Potassium 12.5 mg 11/10/24 09:45 11/12/24 12:50 Losartan 25 Mg Tab PO 12.5 mg DAILY [facility]IO Administration Melatonin 5 mg 11/10/24 00:31 11/11/24 20:25 Melatonin 5 Mg Tablet PO 5 mg HS TULIO Administration Methylprednisolone Sodium Succinate 40 mg 11/11/24 21:00 11/12/24 12:49 Methylprednisolone Sod Succi 40 Mg/Ml 1 Ml Vial IV 40 mg Q12HR [facility] Administration Nitroglycerin 1 inch 11/09/24 18:00 11/12/24 18:40 Nitroglycerin Oint 1 Inch/Gm Packet TOPICAL Not Given Q6HR [facility] Tiotropium [place] 2 puff 11/10/24 17:28 11/12/24 08:13 Tiotropium 2.5 Mcg Inhaler INHALATION Not Given RT-DAILY [facility] Objective - Vital Signs Vital signs: Vital Signs Temp 98.6 F 11/12/24 14:21 Pulse 70 11/12/24 14:21 Resp 17 11/12/24 14:21 BP 147/75 11/12/24 14:21 Pulse Ox 97 11/12/24 14:21 FiO2 Intake & Output 11/11/24 11/12/24 11/12/24 18:59 06:59 18:59 Other: Voiding Method Toilet Toilet Toilet # Voids 3 2 2 - Exam -GENERAL: The patient is alert and oriented x3, not in any acute distress. Well developed, well nourished. Morbidly obese HEENT: Pupils are round and equally reacting to light. EOMI. No scleral icterus. No conjunctival pallor. Normocephalic, atraumatic. No pharyngeal erythema. No thyromegaly. CARDIOVASCULAR: S1 and S2 present. No murmurs, rubs, or gallops. PULMONARY: Chest is clear to auscultation, no wheezing , no crackles. ABDOMEN: Soft, nontender, nondistended, normoactive bowel sounds. No palpable organomegaly. MUSCULOSKELETAL: No joint swelling or deformity. EXTREMITIES: No cyanosis, clubbing, or pedal edema. NEUROLOGICAL: Gross neurological examination did not reveal any focal deficits. SKIN: No rashes. no petechiae. - Labs CBC & Chem 7: 11/09/24 14:50 11/09/24 14:50 Labs: Abnormal Lab Results - Last 24 Hours (Table) 11/11/24 11/11/24 11/12/24 Range/Units 17:13 20:54 06:20 POC Glucose (mg/dL) 141 H 277 H 297 H (70-110) mg/dL 11/12/24 Range/Units 12:15 POC Glucose (mg/dL) 203 H (70-110) mg/dL Assessment and Plan Assessment: Left arm pain suspected secondary to cardiac disease with abnormal stress test showing possible malick-infarct ischemia with plan for cardiac cath Mild acute COPD exacerbation secondary to cocaine Cocaine abuse, patient counseled extensively to quit and she agrees. She plans to go to [place] upon discharge Morbid obesity with BMI of 45.6 Diabetes mellitus with mild hyperglycemia and hemoglobin A1c 7.7% Plan: Continue with aspirin 81 mg Continue with other cardiac medication cardiology team from the patient closely Abnormal stress test was noted today, plan for evaluation for possible cardiac cath by cardiology team. Keep n.p.o. after midnight We added Farxiga which will help both cardiac disease as well as diabetes mellitus with mildly elevated hemoglobin A1c 7.7%. Besides Farxiga will not cause weight gain as patient is obese Continue with IV Solu-Medrol with plan to switch to prednisone burst taper soon Patient planned to go to [place] upon discharge DVT prophylaxis: Subcutaneous heparin GI prophylaxis: Pepcid Prognosis is guarded
[2024-11-13] MEDS: HEPARIN SODIUM,PORCINE 5,000 UNIT/ML 1 ML VIAL SQ SCH (00:22)
[2024-11-13 03:43] VITALS: RESP 18
[2024-11-13 06:21] LABS: Glucose,Whole Blood 353 mg/dL (70-110)
[2024-11-13] MEDS: DAPAGLIFLOZIN PROPANEDIOL 10 MG TABLET PO SCH (10:23)
[2024-11-13] MEDS ORDERED: ALPRAZolam 0.25 MG TAB PO PRN (11:31)
[2024-11-13] MEDS ORDERED: NITROGLYCERIN SL TABS 0.4 MG TAB SUBLINGUAL PRN (11:31)
[2024-11-13] MEDS ORDERED: ALPRAZolam 0.5 MG TAB PO PRN (11:31)
[2024-11-13] MEDS: ATORVASTATIN 80 MG TAB PO STA (12:45)
[2024-11-13] MEDS: ASPIRIN 325 MG TAB PO STA (12:45)
[2024-11-13 12:48] LABS: Glucose,Whole Blood 167 mg/dL (70-110)
--- NOTE | 2024-11-13 13:05 | P.PN ---
Subjective 64-year-old female who presents to the emergency department with a past medical history significant for smoking and diabetes and crack cocaine. Patient states she last used crack cocaine 5 days ago. Patient also has a history of asthma. Patient states about 3 hours prior to arrival she came to the emergency department because she started having pain in her left arm and got quite painful and she also started having shortness of breath at that time. Patient denies any chest pain or palpitations. Patient denies any fever chills. Patient st ates she has a cough but it has been dry patient denies abdominal pain patient has nausea vomiting diarrhea. Patient denies any diaphoretic episode. Patient states she has a mild headache. Patient states that her arm pain is still there but is much improved. Patient still feels mildly short of breath. Blood work completed in ED reveals a WBC of 8.3, hemoglobin of 12.5 and platelet count of 201, sodium 138, potassium 4.5, BUNs/creatinine of 20/1.02 and blood glucose of 243 --Patient reports worsening shortness of breath and wheezing; coughing with yellowish phlegm; reports some chills last night -- Acute exacerbation asthma/COPD; we will add IV Solu-Medrol; doxycycline; nebulizer treatment -Has been evaluated for cardiology; scheduled for stress test tomorrow 11/12 This is a pleasant 64 years old female who presents because of left arm pain with little dyspnea. After she was using crack cocaine the last few days. Patient evaluated by global commodity manager and underwent stress test today showing possible old infarct and cannot exclude malick-infarct reversible ischemia and they recommend direct cardiac cath visualization. Patient informed and and she agrees. Other than that she was feeling well and expected to be discharged. She is going to be negative but now she agrees to stay and be evaluated by global commodity manager. Cardiology team already on the case Patient also on IV Solu-Medrol 40 mg twice daily and doxycycline for possible COPD exacerbation but looks fine and improving, she is saturating well on room airAt 99% She denies cough and phlegm. No fever or leukocytosis. WBC is 8.3. I think her COPD exacerbation is also due to cocaine rather than true infection. I do not think patient will benefit from antibiotics which may carry more risk than benefit Other than that she is doing well and may be considered for prednisone burst taper in 1 to 2 days However we will keep monitoring for now Patient was counseled to quit cocaine, she looks actually motivated to quit and she informed me she is planning to go to [place] upon discharge No other new complaints Hemodynamically stable Labs were unremarkable 11/13 Patient with no chest pain and dyspnea is improving and minimal no coughing She has abnormal stress test and plan for cardiac cath today with cardiology team Patient is eager to have the cath done today and hoping to go home soon. She actually wants to go to [place] upon discharge I advised patient to avoid cocaine and she said definitely she will not go back to it. Discussed with case operator as patient insurance is out of network Objective - Vital Signs Vital signs: Vital Signs Temp 97.9 F 11/13/24 07:00 Pulse 55 L 11/13/24 07:00 Resp 18 11/13/24 07:00 BP 126/64 11/13/24 07:00 Pulse Ox 96 11/13/24 07:00 FiO2 Intake & Output 11/12/24 11/13/24 11/13/24 18:59 06:59 18:59 Intake Total 222 Balance 222 Intake: Oral 222 Other: Voiding Method Toilet Toilet # Voids 2 1 - Exam -GENERAL: The patient is alert and oriented x3, not in any acute distress. Well developed, well nourished. Morbidly obese HEENT: Pupils are round and equally reacting to light. EOMI. No scleral icterus. No conjunctival pallor. Normocephalic, atraumatic. No pharyngeal erythema. No thyromegaly. CARDIOVASCULAR: S1 and S2 present. No murmurs, rubs, or gallops. PULMONARY: Chest is clear to auscultation, no wheezing , no crackles. ABDOMEN: Soft, nontender, nondistended, normoactive bowel sounds. No palpable organomegaly. MUSCULOSKELETAL: No joint swelling or deformity. EXTREMITIES: No cyanosis, clubbing, or pedal edema. NEUROLOGICAL: Gross neurological examination did not reveal any focal deficits. SKIN: No rashes. no petechiae. - Labs CBC & Chem 7: 11/09/24 14:50 11/09/24 14:50 Labs: Abnormal Lab Results - Last 24 Hours (Table) 11/12/24 11/12/24 11/13/24 Range/Units 17:53 20:27 06:20 POC Glucose (mg/dL) 187 H 258 H 353 H (70-110) mg/dL 11/13/24 Range/Units 12:46 POC Glucose (mg/dL) 167 H (70-110) mg/dL Assessment and Plan Assessment: Left arm pain suspected secondary to cardiac disease with abnormal stress test showing possible malick-infarct ischemia with plan for cardiac cath Mild acute COPD exacerbation secondary to cocaine Cocaine abuse, patient counseled extensively to quit and she agrees. She plans to go to [place] upon discharge Morbid obesity with BMI of 45.6 Diabetes mellitus with mild hyperglycemia and hemoglobin A1c 7.7% Plan: Continue with aspirin 81 mg Continue with other cardiac medication cardiology team from the patient closely Abnormal stress test was noted today, plan for evaluation for possible cardiac cath by cardiology team. Keep n.p.o. after midnight. Cardiac cath is planned on 07/14 We added Farxiga which will help both cardiac disease as well as diabetes mellit us with mildly elevated hemoglobin A1c 7.7%. Besides Farxiga will not cause weight gain as patient is obese Continue with IV Solu-Medrol with plan to switch to prednisone burst taper soon Patient planned to go to [place] upon discharge DVT prophylaxis: Subcutaneous heparin GI prophylaxis: Pepcid Prognosis is guarded
[2024-11-13] MEDS: fentaNYL (PF) 50 MCG/ML 2 ML AMP IVP ONE (13:20)
[2024-11-13] MEDS: MIDAZOLAM 2 MG/2 ML VIAL IVP ONE (13:20)
[2024-11-13] MEDS: LIDOCAINE 1% INJ 10MG/ML (20 ML MDV) SQ ONE (13:23)
[2024-11-13] MEDS: VERAPAMIL SYRINGE (5 MG/10 ML) INTRAARTER ONE (13:24)
[2024-11-13] MEDS: SODIUM CHLORIDE 0.9% 1,000 ML IV ONE (13:32)
[2024-11-13] MEDS: HEPARIN SODIUM 1,000 UN/ML (10ML VL) IVP ONE (13:32)
[2024-11-13] MEDS: HEPARIN SODIUM,PORCINE 10,000 UNIT in SODIUM CHLORIDE 0.9% 1,000 ML IRRIGATION ONE (13:32)
[2024-11-13] MEDS: HEPARIN SODIUM,PORCINE (1 ML) 2,500 UNIT in SODIUM CHLORIDE 0.9% 250 ML IRRIGATION ONE (13:33)
[2024-11-13] MEDS: IOPAMIDOL-370 100ML BTL INJ ONE (13:37)
[2024-11-13] MEDS ORDERED: RX INFO: IV CONTRAST WAS GIVEN 1 EACH MISC MISCELLANE PRN (13:47)
--- NOTE | 2024-11-13 13:47 | P.CARDCATH ---
Date of Procedure: 11/13/24 Description of Procedure: DIAGNOSTIC CORONARY ANGIOGRAPHY and LEFT HEART CATH REPORT PROCEDURES PERFORMED: Left heart catheterization Selective coronary angiography Moderate conscious sedation 14 mins [Ultrasound assisted] Right radial access INDICATION: Substernal chest pressure, abnormal stress test BRIEF HPI: 64-year-old with past medical history morbid obesity, 1 pack tobacco smoker presented to the hospital with substernal chest pressure-like symptoms. She underwent next scan nuclear stress test which showed infarct with malick- infarct ischemia. Because of abnormal nature of the stress test along with her nonresolving symptoms of substernal chest pressure along with risk factors, she was scheduled for a cardiac authorization procedure CONSENT: I have explained the procedural steps of above-mentioned procedures in layman's terms to the patient. I discussed the risks (including but not limited to stroke, emergent vascular or cardiac surgery or ), benefits and alternative therapies for the above-mentioned procedure. I discussed the risks of sedation/analgesia and blood product administration (if indicated). The patient has indicated understanding and acceptance of these risks. Conscious Sedation: Patient's ECG, heart rate, blood pressure, pulse oximetry were monitored throughout the duration of procedure under my direct supervision. 1 mg Versed and 50 mcg Fentanyl were used for induction of moderate conscious sedation. Total duration of moderate concious sedation 14 minutes. PROCEDURAL DETAILS: Patient was prepped and draped in sterile fashion. 1% lidocaine was infiltrated over the right radial artery. Right radial access was obtained via modified seldinger technique. [Ultrasound was used for radial access]. Medications: 5mg of verapamil was administed in the radial sheet. 6000 Units of Heparin was administed once the catheter reached the aortic root Wires and Catheter used: J wire was advanced under fluroscopy to get ot aortic root, JL 3.5 to selectively engage the left coronary ostium. JR4 to selectively engage the right coronary ostium. JR 4 catheter was used to obtain left ventricular pressure and pressure gradint across aortic valve. Angiographic images were reviewed in detail. Catheter and wire were removed. Radial sheet was flushed. The right radial sheath was removed and a TR band was placed. Patent hemostasis was achieved. The patient tolerated the procedure well. Patient was transported back to the post catheterization holding area in stable condition. TECHNICAL DETAILS Total radiation: 150 mGy Total fluro time: 1.5 minutes Total contrast used: Isovue 50 ml Complications: [none] Estimated Blood loss: less than 15 ml HEMODYNAMICS: Aortic Pressure: 140/70 mmHg. LV pressure: 142/10 mmHg. LVEDP 20 mmHg. There was no significant gradient across the aortic valve. SELECTIVE CORONARY ARTERIOGRAPHY: LEFT MAIN: The left main is short and large caliber vessel. It bifurcates into the LAD and circumflex. Left main appears angiographically normal. LEFT ANTERIOR DESCENDING CORONARY ARTERY: LAD is a large caliber vessel which wraps around to the apex. Proximal LAD appears angiographically normal. Mid LAD appears angiographically normal. Distal LAD appears angiographically normal. LEFT CIRCUMFLEX CORONARY ARTERY: It is nondominant vessel. Left circumflex is a moderate caliber vessel. It appears angiographically normal. It gives rise to a high OM1 branch and OM 2 branch which are medium caliber and appears angiogra phically patent. RIGHT CORONARY ARTERY: Dominant vessel. The right coronary artery is a large caliber vessel which gives PDA and PLV branch. Proximal mid and distal RCA along with PDA and PL branches appear angiographically patent. IMPRESSION: Angiographically patent coronary arteries as described above. Mildly elevated LVEDP PLAN: Aggressive risk factor modification per most recent ACC/AHA guidelines. Smoking cessation counseling provided. Quit line information given 125 cc fluids for 4 hours Discharge home in 4 hours Follow-up in the office in 1-2 weeks. Performing Physician Rahul Ramesh MD, FACC, RPVI Thank you for allowing [facility] to participate in this patient's care. Feel free to reach out in case of any followup questions.
[2024-11-13] MEDS ORDERED: SODIUM CHLORIDE 0.9% 1,000 ML IV SCH (14:00)
--- NOTE | 2024-11-13 14:23 | P.PN ---
Subjective Progress Note Date: 11/13/24 HISTORY OF PRESENTING ILLNESS: Patient is a 64-year-old female with past medical history of type 2 diabetes and morbid obesity. She presented to the Hospital because of symptoms of increased worsening shortness of breath and left-sided shoulder pain. She denies any fever chills however does report mild cough. Patient's left shoulder has a limited range of motion at the shoulder joint. Bringing her arm above her shoulder induces the pain that brought her to the hospital. He smokes 1 pack/day for last 45 years. She denies any alcohol use or marijuana use. She denies any drug use. She denies any prior history of stroke or TIA. She has not had any prior cardiac testing done in recent past. Admission Cardiac Labs: Troponin x 3 were negative, hypoglycemic with glucose 248, oral panel was negative, Hb 12.5 Admission testing: EKG shows normal sinus rhythm with no significant ST-T changes concerning for ischemia. Low voltage complexes due to body habitus CXR shows no significant pulmonary congestion or consolidation 11/11/2024 Patient is seen and examined at bedside this a.m. Patient denies having any active chest pain chest pressure. She mostly complains of right shoulder pain yesterday which also seems to be have got better. 11/12/2024 Patient seen and examined in the stress lab. Patient is scheduled today for Lexiscan stress test. No complaints of chest pain or chest pressure. Blood pressure 117/78, heart rate 57, pulse ox 94% on room air. 11/13 Patient seen and examined. Patient underwent Lexiscan stress test yesterday which came back abnormal. Results of the stress test were reviewed with the patient. She states she is still having chest pain although less today. She feels that the Nitropaste is helping. She also has some shortness of breath with activity. Blood pressure 126/64, heart rate 55, pulse ox 96% on room air. Discussed with patient recommendations for cardiac catheterization, discussed risk and benefits and patient is agreeable to move forward with this. Will try and schedule for later today. Patient is NPO. PHYSICAL EXAMINATION: Neck: Brisk carotid upstroke, no jugular venous distention. Lungs: Mild wheezing or rhonchi audible Heart: Regular rate and rhythm, S1-S2, , no murmur or rub. Abdomen: Soft nontender, positive bowel sounds. Extremities: No edema, intact distal pulses. Neuro: Alert, oritented, no focal deficits. Detailed neuro exam was not performed. ASSESSMENT: # Left shoulder pain and arm pain, most likely musculoskeletal. Ruled out of ACS with negative ECG and tropes. Pain reproducible with bringing arm above the shoulder # Shortness of breath, likely mild COPD exacerbation # Type II diabetes # Morbid obesity # Tobacco smoker 1 pack/day [id number] smoking history PLAN: Continue patient on aspirin 81 mg, Lipitor 40 mg, losartan 12.5 mg daily Diabetes and COPD management as per primary team Schedule patient for cardiac catheterization today with Dr. Ramesh. Smoking cessation counseling provided. Quit line details provided Nurse practitioner note has been reviewed, I agree with documented findings and plan of care. Patient was seen and examined. Objective - Vital Signs Vital signs: Vital Signs Temp 97.9 F 11/13/24 07:00 Pulse 55 L 11/13/24 07:00 Resp 18 11/13/24 07:00 BP 126/64 11/13/24 07:00 Pulse Ox 96 11/13/24 07:00 FiO2 Intake & Output 11/12/24 11/13/24 11/13/24 18:59 06:59 18:59 Intake Total 222 Balance 222 Intake: Oral 222 Other: Voiding Method Toilet Toilet # Voids 2 1 - Labs CBC & Chem 7: 11/09/24 14:50 11/09/24 14:50 Labs: Abnormal Lab Results - Last 24 Hours (Table) 11/12/24 11/12/24 11/12/24 Range/Units 12:15 17:53 20:27 POC Glucose (mg/dL) 203 H 187 H 258 H (70-110) mg/dL 11/13/24 Range/Units 06:20 POC Glucose (mg/dL) 353 H (70-110) mg/dL
[2024-11-13 17:39] LABS: Glucose,Whole Blood 321 mg/dL (70-110)
[2024-11-13 18:29] VITALS: BP 121/68; PULSE 79; TEMP 98.2
[2024-11-14] MEDS ORDERED: HEPARIN SODIUM,PORCINE (1 ML) 2,500 UNIT in SODIUM CHLORIDE 0.9% 250 ML IRRIGATION PRN (07:00)
[2024-11-14] MEDS ORDERED: HEPARIN SODIUM,PORCINE 10,000 UNIT in SODIUM CHLORIDE 0.9% 1,000 ML IRRIGATION PRN (07:00)
== END 2024-11-13 19:08 | disposition home or self-care (01) | DRG 140 ==
LOC: EC 14:04 → 6NMEDSUR 17:25 → OBSVTOIN 17:26 → 6NMEDSUR 17:57
PROVIDERS: ADMIT Hospitalist; ATTEND Hospitalist
PROC: B2151ZZ Fluoroscopy of Left Heart using Low Osmolar Contrast (ICD-10-PCS; 2024-11-13)
PROC: B2111ZZ Fluoroscopy of Multiple Coronary Arteries using Low Osmolar Contrast (ICD-10-PCS; 2024-11-13)
PROC: 4A023N7 Measurement of Cardiac Sampling and Pressure, Left Heart, Percutaneous Approach (ICD-10-PCS; principal; 2024-11-13 19:20)
DX: J44.1 Chronic obstructive pulmonary disease with (acute) exacerbation (principal); E11.65 Type 2 diabetes mellitus with hyperglycemia; F17.210 Nicotine dependence, cigarettes, uncomplicated; M25.512 Pain in left shoulder; M79.602 Pain in left arm; F31.9 Bipolar disorder, unspecified; E66.01 Morbid (severe) obesity due to excess calories; F14.10 Cocaine abuse, uncomplicated; J45.901 Unspecified asthma with (acute) exacerbation; Z68.42 Body mass index [BMI] 45.0-49.9, adult; Z88.5 Allergy status to narcotic agent; Z88.8 Allergy status to other drugs, medicaments and biological substances; Z79.899 Other long term (current) drug therapy; Z79.84 Long term (current) use of oral hypoglycemic drugs
CPT/HCPCS: 36415; 71046; 78452; 80053; 80061; 83036; 83735; 83880; 84443; 84484; 85025; 85610; 85730; 87636; 93005; 93017; 93306; 93458; 96360; 99285